=== PATIENT | male | born 1995 | race Caucasian/White ===

== ENCOUNTER 2018-09-27 01:19 | Emergency (ER) | payer SELFPAY ==
[~2018-09-27] VITALS: Ht 190.5 cm; Wt 91.0 kg
--- NOTE | 2018-09-27 01:40 | NUR ---
PT PLACED IN BED. RPD AT BEDSIDE. PT AROUSABLE TO PAINFUL STIMULI THEN RETURNS TO SOMULENT STATE. SPIT ESRTADA REMVED PT DESATING ON RA TO 71%. PT REPOSITIONED, NOW SATING 98%. WILL CONTINUE TO MONITOR.
--- NOTE | 2018-09-27 02:20 | NUR ---
PT DESATING AGAIN TO 77% ON RA. PT PLACED ON 4L O2 PER N/C. PT STILL LETHARGIC, AROUSES EASIER WITH PAINFUL STIMULI, STILL DOZES OFF QUICKLY. BILAT BEDRAILS UP.
--- NOTE | 2018-09-27 03:17 | NUR ---
O2 TURNED DOWN TO 2L, PT SAING 99% AT THIS TIME WITH N/C.
--- NOTE | 2018-09-27 04:33 | NUR ---
PT RESTING CALMLY IN BED WITH EYES CLOSED. PT AROUSABLE FOR SHORT WHILE WITH PAINFUL STIMULI. PT SATING 88%ON RA. PT O2 N/C PLACE BACK ON. PT REPOSITIONED IN BED. BILAT BEDRAILS UP.
--- NOTE | 2018-09-27 05:44 | NUR ---
ATTEMPTED TO GET PT UP FOR AMBULATION. PT arouses TO VOICE. PT A&OX2, UNABLE TO STATE HIS ADDRESS. PT STATED HE LIVES IN [place] AND HIS MOM CAN PICK HIM UP. ASKED PT TO CALL HIS MOM. PT STATED, NO, AND GAVE HER PHONE NUMBER THEN WENT BACK TO SLEEP. PT REPOSITIONED IN BED.
--- NOTE | 2018-09-27 06:30 | NUR ---
PT RESTING IN BED WITH EYES CLOSED. NO STATED NEEDS AT THIS TIME. PT VSS. WILL CONTINUE TO MONITOR.
--- NOTE | 2018-09-27 06:53 | NUR ---
[facility], aspiration precautions in place, incoherently responds to verbal stimuli, NAD with equal chest rise/fall, no needs at this time, call light within reach.
--- NOTE | 2018-09-27 06:54 | NUR ---
bedside report given to [facility].
--- NOTE | 2018-09-27 08:00 | NUR ---
pt continues to sleep on gurney, aspiration precautions remain in place, incoherently responds to verbal stimuli, NAD with equal chest rise/fall, no needs at this time, call light within reach.
--- NOTE | 2018-09-27 09:02 | NUR ---
pt sleeping on gurney, aspiration precautions remain in place, incoherently responds to verbal stimuli, NAD with equal chest rise/fall, no needs at this time, call light within reach.
[2018-09-27 09:34] VITALS: BP 114/63
--- NOTE | 2018-09-27 09:38 | NUR ---
pt awoke & states he's ready to be DC'd home, ambulates steadily, responds approp to staff/AAOx4, NAD, reports hx of left AC separation, denies pain & refused sling. Patient given discharge instructions and they have confirmed that they understand the instructions. Patient ambulatory with steady gait.
== END 2018-09-27 09:44 | disposition home or self-care (01) ==
LOC: ED 09:07
DX: S43.402A Unspecified sprain of left shoulder joint, initial encounter (principal); F10.120 Alcohol abuse with intoxication, uncomplicated; Y90.9 Presence of alcohol in blood, level not specified
CPT/HCPCS: 36415; 71045; 80307; 99284